=== PATIENT | female | born 1995 | race Caucasian/White ===

== ENCOUNTER 2017-01-24 21:32 | Emergency (ER) | payer BC ==
[~2017-01-24] VITALS: Ht 152.4 cm; Wt 44.0 kg
[2017-01-24 21:47] VITALS: Ht 152.4 cm; Wt 44.0 kg
[2017-01-24] MEDS ORDERED: ONDANSETRON 4 MG INJ IV STA (22:14)
[2017-01-24] MEDS ORDERED: morphine 4 MG/ML VIAL IV STA (22:14)
[2017-01-24 22:56] LABS: ADD SCAN DIFF NO
[2017-01-24] MEDS ORDERED: SOD CHLORIDE 0.9% 1,000 ML IV ONE (23:00)
[2017-01-24 23:01] LABS: BASOPHILS % 0.1 % (0.0-2.0); EOSINOPHILS % 0.2 % (0.0-7.0); HEMOGLOBIN 16.1 g/dl (12.0-16.0); LYMPHOCYTES % 5.5 % (18.0-55.0); MEAN CORPUSCULAR HEMOGLOBIN 30.5 pg (29.0-33.0); MEAN CORPUSCULAR VOLUME 87.1 fl (72.0-104.0); MEAN PLATELET VOLUME 10.5 fl (7.4-10.4); MONOCYTE # 0.9 10^3/ul (0.3-0.9); MONOCYTES % 4.9 % (0.0-13.0); NEUTROPHIL # 15.4 10^3/ul (1.6-7.5); NEUTROPHILS % 88.8 % (30.0-74.0); PLATELET COUNT 280 10^3/UL (140-415); RED BLOOD COUNT 5.28 10^6/ul (4.20-5.40); RED CELL DISTRIBUTION WIDTH 12.4 % (11.5-14.5); WHITE BLOOD COUNT 17.4 10^3/ul (4.8-10.8)
[2017-01-24 23:10] LABS: ALBUMIN 5.1 g/dl (3.3-4.9); ALBUMIN/GLOBULIN RATIO 1.37; BILIRUBIN,INDIRECT 0.6 mg/dl (0-1.1); BILIRUBIN,TOTAL 0.6 mg/dl (0.2-1.3); CALCIUM 10.4 mg/dl (8.4-10.2); CREATININE 0.75 mg/dl (0.44-1.00); POTASSIUM 3.2 mmol/L (3.5-5.1); TOTAL PROTEIN 8.8 g/dl (6.1-8.1)
[2017-01-24 23:32] LABS: ADD UMIC YES; URINE BILIRUBIN (Dip) 2+ (NEGATIVE); URINE BLOOD (Dip) NEGATIVE (NEGATIVE); URINE COLOR DK. YELLOW (YELLOW); URINE GLUCOSE (Dip) NEGATIVE (NEGATIVE); URINE KETONES (Dip) 40 (NEGATIVE); URINE LEUKOCYTE ESTERASE (Dip) NEGATIVE (NEGATIVE); URINE NITRITE (Dip) NEGATIVE (NEGATIVE); URINE TOTAL PROTEIN (Dip) 2+ (NEGATIVE); URINE UROBILINOGEN (Dip) 1.0 E.U./dL (0.1-1.0)
[2017-01-24 23:51] LABS: ICTOTEST NEGATIVE (NEGATIVE)
[2017-01-24 23:52] LABS: BACTERIA,URINE MODERATE; MUCUS,URINE MANY; SQUAMOUS EPITHELIAL CELL,UR FEW
--- NOTE | 2017-01-24 23:58 | ERD ---
ER Documentation Chief Complaint Date/Time DATE: 01/24/17 TIME: 23:55 Chief Complaint AP +N.V TODAY SOB HPI This is a 21-year-old female who presents the emergency department today complaining of severe abdominal pain that started earlier this evening. Patient states she has had nausea and vomiting. States that she took some [place]- [place]. States she was at work when she started having pain. States she is sexually active. Denies any fevers or chills, dysuria, vaginal bleeding, vaginal discharge ROS All systems reviewed and are negative except as per history of present illness. Medications Home Meds Active Scripts Electrolyte,Oral (Pedialyte) 1,000 Ml Solution, 100 ML PO Q6 Y for VOMITTING, # 1000 ML Prov:LUKAS ESCAMILLA PA-C 01/25/17 Hydrocodone/Acetaminophen ([place] 5-325 Tablet) 1 Each Tablet, 1 TAB PO Q6H Y for PAIN, #12 TAB Prov:LUKAS ESCAMILLA-Betina 01/25/17 Ondansetron Hcl* (Zofran*) 4 Mg Tablet, 4 MG PO Q6H for NAUSEA AND/OR VOMITING, #30 TAB Prov:LUKAS ESCAMILLA-C 01/25/17 Dicyclomine Hcl* (Bentyl*) 10 Mg Capsule, 10 MG PO QID, #30 CAP Prov:LUKAS ESCAMILLA-C 01/25/17 Allergies Allergies: Coded Allergies: No Known Allergy (Unverified , 10/31/13) PMhx/Soc Medical and Surgical Hx: pt denies Medical Hx, pt denies Surgical Hx Hx Alcohol Use: No Hx Substance Use: No Hx Tobacco Use: No Smoking Status: Never smoker Physical Exam Vitals Vital Signs Date Time Temp Pulse Resp B/P Pulse Ox O2 Delivery O2 Flow Rate FiO2 01/24/17 21:47 97.0 118 28 112/63 98 Physical Exam Const: moderate distress Head: Atraumatic Eyes: Normal Conjunctiva ENT: Normal External Ears, Nose and Mouth. Neck: Full range of motion..~ No meningismus. Resp: Clear to auscultation bilaterally Cardio: Regular rate and rhythm, no murmurs Abd: Soft, diffuse abdominal tenderness more specific in the right lower quadrant non distended. Normal bowel sounds Skin: No petechiae or rashes Back: No midline or flank tenderness Ext: No cyanosis, or edema Neur: Awake and alert Psych: Normal Mood and Affect Result Diagram: 01/24/17223601/24/172236 Results 24 hrs Laboratory Tests Test 01/24/17 22:37 01/24/17 23:07 White Blood Count 17.410^3/ul Red Blood Count 5.2810^6/ul Hemoglobin 16.1g/dl Hematocrit 46.0% Mean Corpuscular Volume 87.1fl Mean Corpuscular Hemoglobin 30.5pg Mean Corpuscular Hemoglobin Concent 35.0g/dl Red Cell Distribution Width 12.4% Platelet Count 55886^3/UL Mean Platelet Volume 10.5fl Neutrophils % 88.8% Lymphocytes % 5.5% Monocytes % 4.9% Eosinophils % 0.2% Basophils % 0.1% Nucleated Red Blood Cells % 0.0/100WBC Neutrophils # 15.410^3/ul Lymphocytes # 1.010^3/ul Monocytes # 0.910^3/ul Eosinophils # 0.010^3/ul Basophils # 0.010^3/ul Nucleated Red Blood Cells # 0.010^3/ul Sodium Level 138mmol/L Potassium Level 3.2mmol/L Chloride Level 106mmol/L Carbon Dioxide Level 19mmol/L Anion Gap 16 Blood Urea Nitrogen 10mg/dl Creatinine 0.75mg/dl Glucose Level 148mg/dl Calcium Level 10.4mg/dl Total Bilirubin 0.6mg/dl Direct Bilirubin 0.00mg/dl Indirect Bilirubin 0.6mg/dl Aspartate Amino Transf (AST/SGOT) 22IU/L Alanine Aminotransferase (ALT/SGPT) 21IU/L Alkaline Phosphatase 110IU/L Total Protein 8.8g/dl Albumin 5.1g/dl Globulin 3.70g/dl Albumin/Globulin Ratio 1.37 Lipase 76U/L Urine Color DK. YELLOW Urine Clarity CLEAR Urine pH 8.0 Urine Specific [place] 1.015 Urine Ketones 40 Urine Nitrite NEGATIVE Urine Bilirubin 2+ Urine Ictotest NEGATIVE Urine Urobilinogen 1.0 E.U./dL Urine Leukocyte Esterase NEGATIVE Urine Microscopic RBC 2-5/HPF Urine Microscopic WBC 0-2/HPF Urine Squamous Epithelial Cells FEW Urine Bacteria MODERATE Urine Mucus MANY Urine Hemoglobin NEGATIVE Urine Glucose NEGATIVE% Urine Total Protein 2+ Current Medications Medications (Trade) Dose Ordered Sig/Cole Route PRN Reason Start Time Stop Time Status Last Admin Dose Admin Morphine Sulfate (morphine) 4 mg ONCE STAT IV 01/24/17 22:14 01/24/17 22:15 DC 01/24/17 22:30 Ondansetron HCl 4 mg 4 mg ONCE STAT IV 01/24/17 22:14 01/24/17 22:15 DC 01/24/17 22:30 Sodium Chloride (NS) 1,000 ml @ 1,000 mls/hr Q1H ONCE IV 01/24/17 23:00 01/24/17 23:59 DC 01/24/17 22:40 IAGNOSTIC IMAGING REPORT Patient: CATHERINE ALVAREZ : 1995 Age: 21 Sex: F MR #: [id number] DOS: 01/24/17 2214 Ordering MD: LUKAS ESCAMILLA PA-C Location: [facility] Room/Bed: PROCEDURE: CT Abdomen and pelvis without contrast. CLINICAL INDICATION: Abdominal pain. TECHNIQUE: CT scan of the abdomen and pelvis was performed on a multi- detector high-resolution CT scanner. Contiguous axial images were obtained from the lung bases to the ischial tuberosities without intravenous contrast. Coronal and sagittal reformatted images were also obtained. Images were reviewed on the PACS workstation. One or more of the following dose reduction techniques were used: - Automated exposure control. - Adjustment of the mA and/or kV according to patient size. - Use of iterative reconstruction technique. Exam CTD/vol = 4.41 mGy. Total exam DLP = 206.46 mGy-cm. COMPARISON: None. FINDINGS: Evaluation of the lung bases demonstrates no pleural or parenchymal disease. Abdomen: The liver is normal in size. There is no focal mass or dilatation of the biliary tree. The gallbladder is not distended. The spleen, pancreas and bilateral adrenal glands are within normal limits. Bilateral kidneys are normal in size with no contour deforming mass identified. There is no radiopaque renal or ureteral calculus identified. There is no hydronephrosis or hydroureter. There is no retroperitoneal adenopathy. The abdominal aorta is of normal caliber. There are mildly thickened loops of small bowel. There is no bowel obstruction or free air. The appendix is not visualized. There are no pericecal inflammatory changes to suggest appendicitis. There is no diverticulosis or diverticulitis. There is no ascites. Pelvis: The bladder is unremarkable. The uterus and adnexa are within normal limits. There is no significant pelvic adenopathy or free fluid. Evaluation of the osseous structures demonstrates no suspicious lytic or blastic lesion. IMPRESSION: Mildly thickened loops of small bowel represents nonspecific enteritis. Appendix not visualized. If there is clinical suspicion for appendicitis, repeat study can be done with oral and intravenous contrast. .Parish Armstrong MD, Date Time Electronically viewed and signed by .Parish Armstrong MD, MD on 01/25/2017 00:03 .T/ CC: LUKAS ESCAMILLA PA-C Procedures/[facility] This is a 21-year-old female who presents the emergency department today with severe abdominal pain nausea and vomiting that started earlier this evening. Patient was difficult to examine as she was complaining of severe pain however her abdomen pain appeared to be diffuse in nature but more localized to the right lower quadrant. Patient also had nausea and vomiting. I did obtain laboratory work as well imaging given the patient's severe pain complaint Laboratory work shows an elevated white blood cell count of 17.4. She is not anemic. Platelets are within normal limits. Potassium is mildly decreased otherwise electrolytes are within normal limits. Glucose is within normal limits. Liver function is within normal limits. Lipase within normal limits. UA is negative for infection. Urine test is negative CT abdomen pelvis noncontrast shows mildly thickened loops of small bowel representing nonspecific enteritis. The appendix is not visualized however there is no pericecal inflammatory changes to suggest appendicitis. There is no diverticulosis or diverticulitis. There is no renal or ureteral calculus. Uterus and adnexa are within normal limits. There is no pelvic adenopathy or free fluid. Patient abdominal pain likely related to the nonspecific enteritis. Low suspicion for acute surgical abdomen. I discussed the patient's elevated white blood cell count and CT scan with Dr. Mota and he suggested that patient's elevated white blood cell count is likely reactive. Patient has had nausea and vomiting. He does not feel the patient requires antibiotic at this time and feels that the patient is stable for discharge and outpatient management. I have explained the results to the mother and patient. She was given Zofran, morphine here in the emergency department as well as IV fluids. She reported feeling better and that her pain had resolved and patient was asking for water. Patient given a prescription for Zofran, Bentyl, [place] and Pedialyte. At this time the patient is stable for discharge and outpatient management. Patient should follow up with their PCP in the next 1-2 days. They may return to the emergency department sooner for any persistent or worsening of symptoms. Patient and mother understood and agreed with the plan. Departure Diagnosis: Primary Impression: Abdominal pain Abdominal location: generalized Qualified Code: R10.84 - Generalized abdominal pain Condition: LUKAS Noyola PA-C January 24, 2017 23:58
--- NOTE | 2017-01-25 00:04 | RADRPT ---
PROCEDURE: CT Abdomen and pelvis without contrast. CLINICAL INDICATION: Abdominal pain. TECHNIQUE: CT scan of the abdomen and pelvis was performed on a multi-detector high-resolution CT scanner. Contiguous axial images were obtained from the lung bases to the ischial tuberosities wit hout intravenous contrast. Coronal and sagittal reformatted images were also obtained. Images were reviewed on the PACS workstation. One or more of the following dose reduction techniques were used: - Automated exposure control. - Adjustment of the mA and/or kV according to patient size. - Use of iterative reconstruction technique. Exam CTD/vol = 4.41 mGy. Total exam DLP = 206.46 mGy-cm. COMPARISON: None. FINDINGS: Evaluation of the lung bases demonstrates no pleural or parenchymal disease. Abdomen: The liver is normal in size. There is no focal mass or dilatation of the biliary tree. T he gallbladder is not distended. The spleen, pancreas and bilateral adrenal glands are within kirk l limits. Bilateral kidneys are normal in size with no contour deforming mass identified. There is no radiopaque renal or ureteral calculus identified. There is no hydronephrosis or hydroureter. T here is no retroperitoneal adenopathy. The abdominal aorta is of normal caliber. There are mildly thickened loops of small bowel. There is no bowel obstruction or free air. The ap pendix is not visualized. There are no pericecal inflammatory changes to suggest appendicitis. The re is no diverticulosis or diverticulitis. There is no ascites. Pelvis: The bladder is unremarkable. The uterus and adnexa are within normal limits. There is no significant pelvic adenopathy or free fluid. Evaluation of the osseous structures demonstrates no suspicious lytic or blastic lesion. IMPRESSION: Mildly thickened loops of small bowel represents nonspecific enteritis. Appendix not visualized. If there is clinical suspicion for appendicitis, repeat study can be done with oral and intravenous contrast. .Parish Armstrong MD, MD Date Time Electronically viewed and signed by .Parish Armstrong MD, MD on 01/25/2017 00:03 .T/
[2017-01-25] MEDS ORDERED: DICY10CA60 PO (01:12)
[2017-01-25] MEDS ORDERED: ONDA4TAB8 PO (01:12)
[2017-01-25] MEDS ORDERED: HYDR-906 PO (01:13)
[2017-01-25] MEDS ORDERED: ELEC100080 PO (01:14)
[2017-01-25 01:31] VITALS: BP 101/62; PULSE 90; RESP 16; TEMP 99
== END 2017-01-25 01:32 | disposition home or self-care (01) ==
LOC: FTE 21:32
DX: R10.84 Generalized abdominal pain (principal); R11.2 Nausea with vomiting, unspecified
CPT/HCPCS: 74176; 80053; 81001; 83690; 85025; J2270; J2405; J7030; 36415; 81003; 96374; 96375